=== PATIENT | male | born 1960 | race Caucasian/White ===

== ENCOUNTER 2024-03-01 07:59 | Emergency (ER) | payer MEDICARE ==
[~2024-03-01] VITALS: Ht 172.7 cm; Wt 90.7 kg
[2024-03-01] MEDS ORDERED: VIBRAMYCIN100 MG PO (09:01)
[2024-03-01] MEDS ORDERED: CEPHALEXIN500 M1 PO (09:01)
== END 2024-03-01 09:34 | disposition home or self-care (01) ==
LOC: ED 07:59
PROVIDERS: Emergency Medicine
DX: L03.115 Cellulitis of right lower limb (principal); F17.200 Nicotine dependence, unspecified, uncomplicated